=== PATIENT | male | born 1985 | race Caucasian/White ===

== ENCOUNTER 2018-08-15 09:18 | Emergency (ER) | payer OTHER ==
[~2018-08-15] VITALS: Ht 172.7 cm; Wt 86.4 kg
[2018-08-15] MEDS ORDERED: CELE100C PO (09:25)
[2018-08-15] MEDS ORDERED: ADDE20CA3 PO (09:25)
[2018-08-15 11:28] VITALS: BP 136/92
== END 2018-08-15 11:28 | disposition home or self-care (01) ==
LOC: M ED 09:18
DX: L30.9 Dermatitis, unspecified (principal); F90.9 Attention-deficit hyperactivity disorder, unspecified type; Z79.899 Other long term (current) drug therapy